=== PATIENT | male | born 1945 | race Caucasian/White ===

== ENCOUNTER → 2016-09-09 | Outpatient (CLI) | payer MEDICARE, OTHER | END | disposition home or self-care (01) | LOC: RESC 08:22 | DX: Z51.81 Encounter for therapeutic drug level monitoring (principal); R91.8 Other nonspecific abnormal finding of lung field; J98.09 Other diseases of bronchus, not elsewhere classified; J98.8 Other specified respiratory disorders; R94.2 Abnormal results of pulmonary function studies; Z95.0 Presence of cardiac pacemaker; Z79.899 Other long term (current) drug therapy ==